=== PATIENT | female | born 1975 | race Caucasian/White ===

== ENCOUNTER 2019-08-06 07:25 | Outpatient (CLI) | payer OTHER ==
[2019-08-13 08:22] LABS: BASOPHILS % 0.4 % (0.0-1.5); HDL 70 mg/dL (>40); NEUTROPHILS # 3.6 # k/uL (1.4-7.7); eGFR (Non-African) > 60
== END 2019-08-06 07:40 ==
LOC: LAB 07:25
PROVIDERS: ATTEND Family Medicine
DX: Z13.220 Encounter for screening for lipoid disorders (principal); Z13.29 Encounter for screening for other suspected endocrine disorder; Z13.0 Encounter for screening for diseases of the blood and blood-forming organs and certain disorders involving the immune mechanism
CPT/HCPCS: 36415; 80053; 80061; 84443; 85025